=== PATIENT | female | born 1960 | race Caucasian/White ===

== ENCOUNTER 2019-02-25 14:00 | Emergency (ER) | payer MEDICAID, OTHER ==
[~2019-02-25] VITALS: Ht 154.9 cm; Wt 65.9 kg
[~2019-02-25 14:00] MED LIST: ENAL10TA PO
[2019-02-25 14:09] VITALS: BP 146/78
[2019-02-25] MEDS ORDERED: ACETAMINOPHEN 500 MG TABLET PO ONE (16:15)
[2019-02-25] MEDS ORDERED: POLYMYXIN B/TRIMETHOPRIM 10 ML OPHTHALMIC SOLUTION OS ONE (16:15)
== END 2019-02-25 16:42 | disposition home or self-care (01) ==
LOC: EMS 14:02
DX: H10.89 Other conjunctivitis (principal); R05 Cough; I10 Essential (primary) hypertension; Z79.899 Other long term (current) drug therapy

== ENCOUNTER 2019-10-21 19:22 | Emergency (ER) | payer MEDICAID ==
[~2019-10-21] VITALS: Ht 154.9 cm; Wt 61.8 kg
[2019-10-21] MEDS ORDERED: ACETAMINOPHEN 500 MG TABLET PO ONE (22:15)
[2019-10-21] MEDS ORDERED: IPRATROPIUM BROMIDE 0.5 MG/2.5 ML NEB SOLUTION NEB ONE (22:15)
[2019-10-21] MEDS ORDERED: ALBUTEROL SULFATE 2.5 MG/0.5 ML NEB SOLUTION NEB ONE (22:15)
[2019-10-21 22:53] VITALS: BP 137/66
[2019-10-21] MEDS ORDERED: DOXYCYCLINE HYCLATE 100 MG CAPSULE PO ONE (23:00)
[2019-10-21] MEDS ORDERED: ALBUTEROL SULFATE HFA 90 MCG/PUFF 8 GM INHALER IH ONE (23:00)
== END 2019-10-21 23:24 | disposition home or self-care (01) ==
LOC: EMS 19:23
DX: J18.9 Pneumonia, unspecified organism (principal); I10 Essential (primary) hypertension; F17.210 Nicotine dependence, cigarettes, uncomplicated
CPT/HCPCS: 94060; 94640; 99406; J3535